=== PATIENT | male | born 1985 | race Caucasian/White ===

== ENCOUNTER 2016-09-28 23:35 | Emergency (ER) | payer OTHER ==
[2016-09-28 23:42] VITALS: BP 151/83; PULSE 88; TEMP 97.8; BMI 30.4
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
[2016-09-29 00:34] LABS: EOSINOPHIL 3.1 % (0-4.5); MCH 27.6 pg (25.7-33.7); MCHC 33.7 g/dl (32.0-35.9); MEAN CELL VOLUME 82.1 fl (80-96); PLATELET COUNT 359 K/MM3 (134-434); RDW 13.2 % (11.9-15.9); WHITE BLOOD COUNT 7.9 K/mm3 (4.0-10.0)
[2016-09-29 00:58] LABS: ALBUMIN 4.3 g/dl (3.4-5.0); ANION GAP 11 (8-16); BILIRUBIN,TOTAL 0.5 mg/dL (0.2-1.0); CO2 24 mmol/L (21-32); CREATININE 1.2 mg/dL (0.7-1.3); GLUCOSE,RANDOM 215 mg/dL (74-106); SGOT/AST 35 U/L (15-37); SGPT/ALT 49 U/L (12-78); TOT PROT 8.4 g/dl (6.4-8.2)
[2016-09-29 00:59] LABS: ALK PHOS 79 U/L (45-117)
[2016-09-29 02:17] LABS: HIV 1 & 2 AB NEGATIVE; HIV 1 AGp24 NEGATIVE
[2016-09-30 16:14] LABS: HEP B SURFACE AB Non Reactive (.)
== END 2016-09-29 02:24 | disposition home or self-care (01) ==
LOC: JER 23:35
DX: Z77.21 Contact with and (suspected) exposure to potentially hazardous body fluids (principal); Z20.5 Contact with and (suspected) exposure to viral hepatitis; Y35.891A Legal intervention involving other specified means, law enforcement official injured, initial encounter; Y93.89 Activity, other specified; Y92.89 Other specified places as the place of occurrence of the external cause; Y99.0 Civilian activity done for income or pay
CPT/HCPCS: 36415; 80053; 85025; 86704; 86706; 86708; 87340; 87389; 99281-25

== ENCOUNTER 2017-02-06 12:40 | Emergency (ER) | payer OTHER ==
[2017-02-06 12:47] VITALS: BP 141/83; PULSE 85; TEMP 98; BMI 30.7
[2017-02-06] MEDS ORDERED: IBUPROFEN 600 MG TABLET (FP) PO ONE ×2 (13:21→13:22)
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
== END 2017-02-06 14:15 | disposition home or self-care (01) ==
LOC: JERFT 12:40
DX: S93.401A Sprain of unspecified ligament of right ankle, initial encounter (principal); S63.641A Sprain of metacarpophalangeal joint of right thumb, initial encounter; W17.2XXA Fall into hole, initial encounter; Y93.89 Activity, other specified; Y92.89 Other specified places as the place of occurrence of the external cause; Y99.0 Civilian activity done for income or pay
CPT/HCPCS: 73130-TC-RT; 73610-TC-RT; 99281-25

== ENCOUNTER 2017-03-15 05:22 | Day surgery (SDC) | payer OTHER ==
[2017-03-09 13:28] VITALS: BMI 30.4
[2017-03-15] MEDS ORDERED: BUPIVACAINE HCL/PF 0.5% (5MG/ML) 10 ML VIAL ONE (07:21)
[2017-03-15] MEDS ORDERED: LIDOCAINE HCL 1%, 10 MG/ML (20ML VIAL) ONE (07:21)
--- NOTE | 2017-03-15 08:48 | HP ---
Satellite [facility] - Chief Complaint Chief Complaint: right thumb pain - Past Medical History Allergies/Adverse Reactions: Allergies Allergy/AdvReac Type Severity Reaction Status Date / Time No Known Allergies Allergy Verified 03/15/17 08:13 - Current Medications Current Medications: Home Medications Medication Instructions Recorded Multivitamin [One Daily] 1 each PO DAILY 03/09/17 [place]-3S/Dha/Epa/Fish Oil [Fish 1,600 each PO DAILY 03/09/17 Oil 1,200 mg Softgel] Protein Supplement [Protein Powder] 454 gm PO DAILY 03/09/17 Hydrocodone/Acetaminophen [[place] 1 each PO Q6H PRN #40 tablet MDD 4 03/15/17 5-325 Tablet] Ibuprofen 600 mg PO PRN PRN 03/15/17 Satellite Physical Exam - Physical Examination Vital Signs: Vital Signs Period Temp Pulse Resp BP Sys/Causey Pulse Ox Last 24 Hr 98.0 F 74 20 128/73 99 General Appearance: Well Nourished, Well Developed, Alert & Oriented x3 ENT: Clear Lung: Normal air movement Heart: Regular rate & rhythm Extremities: Other (right thumb- + swelling, + ttp, + laxity with ucl, nvi MRI + ucl rupture) Neurological: Intact, Alert, Oriented Satellite Impression/Plan - Impression/Plan Impression: right thumb ucl rupture Operative Procedure: right thumb ucl repair Date to be Performed: 03/15/17
[2017-03-15] MEDS ORDERED: PROPOFOL 20 ML ONE ×2 (08:54)
[2017-03-15] MEDS ORDERED: MIDAZOLAM HCL 2 MG/2 ML SINGLE DOSE VIAL ONE (08:54)
[2017-03-15] MEDS ORDERED: ceFAZolin SODIUM 1 GM VIAL ONE (09:36)
[2017-03-15] MEDS ORDERED: LIDOCAINE HCL 1%, 10 MG/ML (20ML VIAL) IJ ONE (09:50)
[2017-03-15] MEDS ORDERED: BUPIVACAINE HCL/PF 0.5% (5MG/ML) 10 ML VIAL IJ ONE ×2 (09:50)
--- NOTE | 2017-03-15 10:36 | OP ---
Operative Note - Note: Operative Date: 03/15/17 ([facility]) Pre-Operative Diagnosis: right thumb ucl rupture Operation: right thumb ucl repair Implants: 1 mini mitek anchor Post-Operative Diagnosis: Same as Pre-op Surgeon: Grant Luna Replanting Machine Crew: Lee Lee Anesthesiologist/LEVELER: Miles Brooks Anesthesia: Local, MAC Estimated Blood Loss (mls): 0 (tourniquet) Operative Report Dictated: Yes
[2017-03-15] MEDS ORDERED: ACETAMINOPHEN 325 MG TABLET (FP) PO PRN (10:43)
[2017-03-15] MEDS ORDERED: ONDANSETRON 4 MG/2 ML VIAL IVPUSH PRN (10:43)
[2017-03-15] MEDS ORDERED: LACTATED RINGERS SOLUTION 1,000 ML IV SCH (10:45)
--- NOTE | 2017-03-15 11:28 | OP ---
DATE OF OPERATION: 03/15/2017 PREOPERATIVE DIAGNOSIS: Right thumb ulnar collateral ligament tear. POSTOPERATIVE DIAGNOSIS: Right thumb ulnar collateral ligament tear. PROCEDURE: Right thumb ulnar collateral ligament repair. SURGEON: Maria De Jesus Souza MD TOE CLOSING MACHINE TENDER: DESEAN Herbert ANESTHESIOLOGIST: Miles Brooks MD ANESTHESIA: MAC anesthesia, local injection of 8 mL of 0.5% Marcaine and 1% lidocaine mixed. DRAINS: None. COMPLICATIONS: None. SPECIMEN: None. INDICATIONS: This patient is a 32-year-old [id number] male who sustained an on-the-job right thumb ulnar collateral ligament tear confirmed by MRI. After understanding the potential risks, complications, alternatives, benefits of the surgery vs. non-surgical treatment, the patient elected to undergo this procedure. DESCRIPTION OF PROCEDURE: The patient was brought to the operating room, peripheral IV placed, IV sedation given, 1 g of IV Ancef was given, MAC anesthesia was induced. The right upper extremity was prepped and draped in sterile fashion. A mid-axial incision was marked out over the ulnar aspect of the right thumb MP joint extending into the dorsal crease, and 8 mL of 0.5 Marcaine and 1% lidocaine mix was injected in and around the surgical incision. Right upper extremity was then elevated, exsanguinated with an Esmarch bandage and the tourniquet inflated to 250 mmHg. An incision was made with a No. 15 scalpel blade. Subcutaneous hemostasis was achieved with the bipolar cautery. Dissection was done with the curved Iris scissors down to the ulnar MP joint capsule. It was incised carefully and longitudinally for later repair. Posterior and anterior flaps were raised, the capsule from the ulnar collateral ligament. Additional dissection was done identifying the MP joint, and it appeared that the ulnar collateral ligament was attached to the distal aspect of the metacarpal with a torn off approximately proximal phalanx. There was also a portion that was redundant and loose, but not completely torn off. Next, I identified a good entry point for the Mini Mitek QuickAnchor Suture [place] and drilled with a 0.062 K-wire, and then put in the Mini Mitek Suture [place]. The preloaded Ethibond sutures were then used to cross the MP joint, capture the ulnar collateral ligament on the distal aspect of the thumb metacarpal and bring it down to the proximal phalanx. This came together quite nicely. I was able to do two areas of repair. I then used the Ethibond suture for additional direct repair. Prior to tightening down the first Ethibond suture, I did put a 0.062 K-wire across the MP joint holding it in slight flexion and position taking pressure off the ulnar collateral ligament. Overall, it came together quite nicely. The K-wire was bent, cut, and a pin cap applied. The MP joint was fixed in a good position. The capsule was then repaired over the ulnar collateral ligament repair with 2-0 Vicryl suture, 4-0 undyed Vicryl was used to close the deep dermal layer, and final skin reapproximation was done with a running subcuticular 4-0 Biosyn stitch. The area was then washed and dried, covered by Steri-Strips, Xeroform coated the base of the K-wire, and a little extra local anesthetic was injected at the base of the K-wire. Sterile gauze, fluffs between the fingers, Webril was applied. A 5-inch Ortho-Glass splint was applied in a thumb spica fashion, wrapped with Edin and Coban. The tourniquet was taken down after a total tourniquet time of 40 minutes. There were no complications during the case. The patient tolerated the procedure well and was brought to the ambulatory recovery room in stable condition. MARIA DE JESUS SOUZA M.D. [id number]
[2017-03-15 11:53] VITALS: TEMP 98
[2017-03-15] MEDS ORDERED: oxyCODONE HCL 5 MG TABLET PO PRN (12:07)
[2017-03-15] MEDS ORDERED: oxyCODONE HCL 5 MG TABLET ONE (12:16)
[2017-03-15] MEDS ORDERED: oxyCODONE HCL 5 MG TABLET PO ONE (12:19)
[2017-03-15 14:27] VITALS: BP 104/65; PULSE 72
== END 2017-03-15 13:20 | disposition home or self-care (01) ==
LOC: JASU-SURG 05:22
PROVIDERS: ATTEND Orthopaedic Surgery
PROC: 0RQU0ZZ Repair Right Metacarpophalangeal Joint, Open Approach (ICD-10-PCS; principal; 2017-03-15 09:00)
DX: S63.641A Sprain of metacarpophalangeal joint of right thumb, initial encounter (principal); X58.XXXA Exposure to other specified factors, initial encounter; Y93.9 Activity, unspecified; Y92.9 Unspecified place or not applicable
CPT/HCPCS: 94760

== ENCOUNTER 2018-05-08 05:17 | Day surgery (SDC) | payer OTHER ==
[2018-05-06 16:54] VITALS: BMI 30.1
[2018-05-08] MEDS ORDERED: LIDOCAINE HCL/PF 2% SDV 5ML VIAL ONE (07:13)
[2018-05-08] MEDS ORDERED: PROPOFOL 20 ML ONE ×4 (07:14)
[2018-05-08] MEDS ORDERED: MIDAZOLAM HCL 2 MG/2 ML SINGLE DOSE VIAL ONE ×2 (07:14)
[2018-05-08] MEDS ORDERED: SUCCINYLCHOLINE CHLORIDE 200 MG/10 ML VIAL ONE (07:14)
[2018-05-08] MEDS ORDERED: LIDOCAINE HCL 2% (20ML MULTI-DOSE VIAL) NR ONE (07:24)
[2018-05-08] MEDS ORDERED: BUPIVACAINE HCL/PF 0.5% (5MG/ML) 10 ML VIAL ONE (07:25)
[2018-05-08] MEDS ORDERED: DESFLURANE GAS 240 ML BOTTLE IH ONE (07:30)
--- NOTE | 2018-05-08 08:10 | HP ---
Satellite [facility] - Chief Complaint Chief Complaint: right thumb pain/locking - Past Medical History Allergies/Adverse Reactions: Allergies Allergy/AdvReac Type Severity Reaction Status Date / Time No Known Allergies Allergy Verified 05/08/18 06:35 - Current Medications Current Medications: Home Medications Medication Instructions Recorded Multivit-Min/Folic/Vit K/Lycop 1 each PO DAILY 05/06/18 [Men's Multivitamin Caplet] Hydrocodone/Acetaminophen [[place] 1 each PO Q6H PRN #20 tablet MDD 4 05/08/18 5-325 Tablet] Satellite Physical Exam - Physical Examination Vital Signs: Vital Signs Period Temp Pulse Resp BP Sys/Causey Pulse Ox Last 24 Hr 98.5 F 69 18 114/80 99 General Appearance: Well Nourished, Well Developed, Alert & Oriented x3 ENT: Clear Lung: Normal air movement Heart: Regular rate & rhythm Extremities: Other (right thumb- +ttp, + locking, nvi) Neurological: Intact, Alert, Oriented Satellite Impression/Plan - Impression/Plan Impression: right thumb trigger Operative Procedure: right thumb trigger release Date to be Performed: 05/08/18
[2018-05-08] MEDS ORDERED: ceFAZolin SODIUM 1 GM VIAL IVPB ONE (08:20)
[2018-05-08] MEDS ORDERED: LIDOCAINE HCL 1%, 10 MG/ML (20ML VIAL) NR ONE (08:21)
[2018-05-08] MEDS ORDERED: BUPIVACAINE HCL/PF 0.5% (5MG/ML) 10 ML VIAL IJ ONE (08:21)
--- NOTE | 2018-05-08 08:46 | OP ---
Operative Note - Note: Operative Date: 05/08/18 ([facility]) Pre-Operative Diagnosis: right thumb trigger finger Operation: right thumb trigger release Post-Operative Diagnosis: Same as Pre-op Surgeon: Grant Luna Anesthesia: General, Local Specimens Removed: tenosynovium Estimated Blood Loss (mls): 0 (tourniquet) Operative Report Dictated: Yes
[2018-05-08] MEDS ORDERED: ONDANSETRON 4 MG/2 ML VIAL IVPUSH PRN (08:51)
[2018-05-08] MEDS ORDERED: oxyCODONE HCL 5 MG TABLET PO PRN (08:51)
[2018-05-08] MEDS ORDERED: LACTATED RINGERS SOLUTION 1,000 ML IV SCH (09:00)
--- NOTE | 2018-05-08 09:15 | SPEC ---
DATE OF OPERATION: 05/08/2018 PREOPERATIVE DIAGNOSIS: Right trigger-thumb. POSTOPERATIVE DIAGNOSIS: Right trigger-thumb. PROCEDURE: Right trigger-thumb release and tendon sheath excision. SURGEON: Maria De Jesus Souza MD TUMBLING AND ROLLING SUPERVISOR: None. ANESTHESIOLOGIST: Kehinde Flores MD ANESTHESIA: MAC anesthesia, local injection of 8 mL of 0.5% Marcaine 1% lidocaine mixed. DRAINS: None. COMPLICATIONS: None. SPECIMEN: Tendon sheath, right thumb. BLOOD LOSS: None. BLOOD GIVEN: None. FLUID REPLACEMENT: 500 mL. INDICATIONS: This patient is a 33-year-old male with a preoperative diagnosis of a right trigger-thumb. After understanding the potential risks, complications, alternatives, and benefits of the surgery vs. non-surgical treatment, the patient elected to undergo this procedure. DESCRIPTION OF PROCEDURE: The patient was brought to the operating room, IV was placed, IV sedation was given. One gram of intravenous Ancef given. A tourniquet was applied to the right upper arm and the right upper extremity was prepped and draped in sterile fashion. The entire case was done under 3.8 loupe magnification. A marking pen was utilized to kyrie out a longitudinal incision in an already existing skin crease at the base of the right thumb. Then 10 mL of 0.5% Marcaine mixed with 1% Lidocaine was injected in and around the incision. The right upper extremity was elevated, exsanguinated with an Esmarch bandage and the tourniquet inflated to 250 mmHg. A No. 15 scalpel blade was utilized to cut down through the skin. Subcutaneous hemostasis was achieved with the bipolar cautery. Additional dissection was done with Littler scissors until I was able to directly visualize the A1 ltuher sheath in its entirety. Self-retaining retractors were placed into the wound. A free air elevator was used to free up the tissue on the radial side, the ulnar side distally and proximally under better visualization of A1 luther sheath. Next, using a fresh No. 15 scalpel blade, I excised the central one-third of the A1 luther sheath and passed it off the field as specimen, tendon sheath, right thumb. I then completed the release, both distally and proximally, and brought the FDS and FDP tendons out through the wound with a Ragnell retractor. There were no abnormal points of compression. I was able to move the right thumb without the tendons bunching up at all. The area was then copiously irrigated and washed out. I then checked one more time to make sure there were no abnormal points of compression. None were seen and therefore closure was begun. One stitch using 4-0 Vicryl was used in the deep dermal layer. Skin was reapproximated with 4-0 Nylon sutures in a horizontal mattress fashion. The area was then washed and dried, covered with Xeroform gauze, sterile 4x4s, fluffs between the fingers, Webril and Coban. The tourniquet was taken down after a total tourniquet time of 12 minutes. There were no complications during the case. The patient tolerated the procedure well and was brought to the Ambulatory Recovery Room in stable condition. MARIA DE JESUS SOUZA M.D. [id number]
[2018-05-08 10:43] VITALS: BP 113/71; PULSE 67; TEMP 98.1
--- NOTE | 2018-05-09 17:18 | PATH ---
Surgical Pathology Report Patient Name: IFEANYI VALLEJO [facility]. Rec. #: [id number] /Age/Gender: 1985 (Age: 33) / M Account: [id number] Location: [facility] SURGICAL Taken: 05/08/2018 Received: 05/08/2018 Reported: 05/09/2018 Physicians: Grant Luna M.D. Specimen(s) Received TENDON SHEATH RIGHT THUMB Clinical History Right trigger thumb Final Diagnosis THUMB, RIGHT, TENDON SHEATH, TRIGGER FINGER RELEASE: BENIGN FIBROCONNECTIVE AND FIBROADIPOSE TISSUE. Electronically Signed Onelia Silva M.D. Gross Description Received in formalin labeled "tendon sheath right thumb," are 2 salazar-white fragments of soft tissue measuring 0.3 and 0.6 cm in greatest dimension. The specimens are submitted in toto in one cassette. /05/08/201805/08/2018
== END 2018-05-08 10:50 | disposition home or self-care (01) ==
LOC: JASU-SURG 05:17
PROVIDERS: ATTEND Orthopaedic Surgery
PROC: 0LN70ZZ Release Right Hand Tendon, Open Approach (ICD-10-PCS; principal; 2018-05-08 08:00)
DX: M65.311 Trigger thumb, right thumb (principal)
CPT/HCPCS: 88304-TC; 94760

== ENCOUNTER 2019-07-09 05:17 | Day surgery (SDC) | payer OTHER ==
[2019-06-30 16:10] VITALS: BMI 32.6
--- NOTE | 2019-07-09 10:19 | HP ---
Satellite [facility] - Chief Complaint Chief Complaint: right hand pain - Past Medical History Allergies/Adverse Reactions: Allergies Allergy/AdvReac Type Severity Reaction Status Date / Time No Known Allergies Allergy Verified 05/08/18 06:35 - Current Medications Current Medications: Home Medications Medication Instructions Recorded Multivit-Min/Folic/Vit K/Lycop 1 each PO DAILY 05/06/18 [Men's Multivitamin Caplet] Hydrocodone/Acetaminophen 1 each PO Q6H #20 tablet MDD 4 07/09/19 [Hydrocodone-Acetamin 5-325 mg] Satellite Physical Exam - Physical Examination General Appearance: Well Nourished, Well Developed, Alert & Oriented x3 ENT: Clear Lung: Normal air movement Extremities: Other (right hand- + ttp a1 luther, + lockng, + tinels, + phalens, emg + cts) Neurological: Intact, Alert, Oriented Satellite Impression/Plan - Impression/Plan Impression: right hand cts, 5th trigger finger Operative Procedure: right cts, right 5th tirgger release Date to be Performed: 07/09/19
[2019-07-09] MEDS ORDERED: LIDOCAINE HCL 1%, 10 MG/ML (20ML VIAL) ONE (12:48)
[2019-07-09] MEDS ORDERED: BUPIVACAINE HCL/PF 0.5% (5 MG/ML) 30 ML VIAL IJ ONE ×2 (12:49→17:23)
[2019-07-09] MEDS ORDERED: PROPOFOL 20 ML ONE (13:14)
[2019-07-09] MEDS ORDERED: MIDAZOLAM HCL 2 MG/2 ML SINGLE DOSE VIAL ONE ×2 (16:33)
[2019-07-09] MEDS ORDERED: EPHEDRINE SULFATE/0.9% NACL/PF 50 MG/10 ML SYRINGE NR ONE (16:53)
[2019-07-09] MEDS ORDERED: ceFAZolin SODIUM 1 GM VIAL IVPB ONE (16:53)
[2019-07-09] MEDS ORDERED: LIDOCAINE HCL 1%, 10 MG/ML (20ML VIAL) NR ONE (17:23)
[2019-07-09 19:14] VITALS: TEMP 98
[2019-07-09 19:19] VITALS: PULSE 80
[2019-07-09 19:29] VITALS: BP 110/70
--- NOTE | 2019-07-09 22:46 | OP ---
DATE OF OPERATION: 07/09/2019 PREOPERATIVE DIAGNOSIS: Right carpal tunnel syndrome and recurrent right trigger thumb. POSTOPERATIVE DIAGNOSIS: Right carpal tunnel syndrome and recurrent right trigger thumb. OPERATION: Right carpal tunnel release and tenosynovectomy, and right trigger thumb release. SURGEON: Grant Luna M.D. ASSISTANTS: None. ANESTHESIOLOGIST: Donovan Begum M.D. ANESTHESIA: MAC, local injection with 15 mL of 0.5% Marcaine and 1% Lidocaine mix. DRAINS: None. COMPLICATIONS: None. SPECIMENS: Tenosynovium, right wrist. BLOOD LOSS: None. BLOOD GIVEN: None. FLUID REPLACEMENT: 700 mL of Plasmalyte. INDICATIONS: This patient is 34-year-old male with the preoperative diagnosis of recurrent right trigger thumb and primary carpal tunnel syndrome. After understanding the potential risks, complications, alternatives, benefits to surgery versus nonsurgical treatment, the patient elected to undergo this procedure. DESCRIPTION OF PROCEDURE: The patient was brought to the operating room, peripheral IV placed and intravenous sedation was given. One gram of intravenous Ancef was given. MAC anesthesia was induced. A tourniquet was applied to the right upper arm and the right upper extremity was prepped and draped in sterile fashion. The entire case was done under 3.8 loupe magnification. A marking pen was utilized to kyrie out a longitudinal incision in an already existing skin crease. Twenty mL of 0.5% Marcaine mixed with 1% Lidocaine was injected in and around the surgical incision. The right upper extremity was elevated, exsanguinated with an Esmarch bandage and the tourniquet inflated to 250 mmHg. A No. 15 scalpel blade was utilized to cut down through the skin. Subcutaneous hemostasis was achieved with the bipolar cautery. Dissection was done through the superficial palmar fascia. Self-retaining retractors were placed into the wound. Under direct visualization, the transverse carpal ligament was transected with a No. 15 scalpel blade, exposing the median nerve and the contents of the carpal tunnel. The distal and proximal extents of the release were completed with a Littler scissor and checked with irrigation and my small finger. They were seen to be complete. Limited dissection was done on the radial side of the median nerve and more extensive dissection was done on the ulnar side of the median nerve. The patients nerve was seen to be quite compressed by epineurium and therefore a limited epineurotomy was performed. There was very tight compression when I first released the roof of the carpal tunnel. A Ragnell retractor was used to gently retract the median nerve in a radial direction. The patient had a lot of tenosynovitis and therefore a tenosynovectomy was performed off all 9 flexor tendons. This was passed off the field as tenosynovium right wrist. The floor of the carpal tunnel was checked. There were no abnormal masses or ganglion cysts. The area was copiously irrigated and washed out. Trigger thumb release: The incision was made. Subcutaneous hemostasis was achieved with bipolar cautery. Dissection was done down to the A1 luther sheath of the right thumb. There was a lot of scar tissue in this area, and a new sub sheath had formed. This was opened, incised and a portion excised. Did the release distally and proximally and checked with the Winnie elevator. I brought the FPL tendon out of the wound with a Ragnell retractor. The entire case was done under 3.8 loupe magnification. A marking pen was utilized to kyrie out a longitudinal incision in an already existing skin crease at the base of the right thumb. Then 10 mL of 0.5% Marcaine mixed with 1% lidocaine was injected in and around the incision. The right upper extremity was elevated, exsanguinated with an Esmarch bandage and the tourniquet inflated to 250 mmHg. A No. 15 scalpel blade was utilized to cut down through the skin. Subcutaneous hemostasis was achieved with the bipolar cautery. Additional dissection was done with Littler scissors until I was able to directly visualize the A1 luther sheath in its entirety. Self-retaining retractors were placed into the wound. A Winnie elevator was used to free up the tissue on the radial side, the ulnar side distally and proximally under better visualization of A1 luther sheath. Next, using a fresh No. 15 scalpel blade, I excised the central one-third of the A1 luther sheath and passed it off the field as specimen, tendon sheath, right thumb. I then completed the release, both distally and proximally, and brought the FDS and FDP tendons out through the wound with a Ragnell retractor. There were no abnormal points of compression. I was able to move the right thumb without the tendons bunching up at all. Undyed 4-0 Vicryl was used to close the deep dermal layer. Final skin reapproximation was done with horizontal mattress 4-0 nylon sutures. The area was then washed and dried, covered with Xeroform, 4x4s, fluffs between the fingers, Webril and a 4-inch plaster roll was utilized to make a volar splint, which was then wrapped with Edin and Coban. The tourniquet was taken down after a total tourniquet time of 40 minutes. There were no complications during the case. The patient tolerated the procedure well and was brought to the ambulatory recovery room in stable condition. Cliff [id number]
--- NOTE | 2019-07-11 15:58 | PATH ---
Surgical Pathology Report Patient Name: IFEANYI VALLEJO [facility]. Rec. #: [id number] /Age/Gender: 1985 (Age: 34) / M Account: [id number] Location: [facility] SURGICAL Taken: 07/09/2019 Received: 07/10/2019 Reported: 07/11/2019 Physicians: Grant Luna M.D. Specimen(s) Received TENOSYNOVIUM, RIGHT Clinical History Right carpal Tunnel Final Diagnosis TENOSYNOVIUM, RIGHT, CARPAL TUNNEL RELEASE: BENIGN DENSE FIBROCONNECTIVE TISSUE. Electronically Signed Onelia Silva M.D. Gross Description Received in formalin labeled "right tenosynovium," is a 1.4 x 1.0 x 0.3 cm aggregate of salazar-yellow portions of soft tissue, consistent with tenosynovium. The specimen is submitted in toto in one cassette. 07/10/201907/10/2019
== END 2019-07-09 19:29 | disposition home or self-care (01) ==
LOC: JASU-SURG 05:17
PROVIDERS: ATTEND Orthopaedic Surgery
PROC: 0LN70ZZ Release Right Hand Tendon, Open Approach (ICD-10-PCS; principal; 2019-07-09 13:00)
PROC: 01N50ZZ Release Median Nerve, Open Approach (ICD-10-PCS; 2019-07-09 13:00)
DX: G56.01 Carpal tunnel syndrome, right upper limb (principal); M65.311 Trigger thumb, right thumb
CPT/HCPCS: 88304-TC; 94760